=== PATIENT | female | born 1960 | race African-American/Black ===

== ENCOUNTER 2016-10-01 06:06 | Day surgery (SDC) | payer OTHER ==
[~2016-10-01] VITALS: Ht 157.5 cm; Wt 69.1 kg
[~2016-10-01 06:06] MED LIST: SODIUM CHLORIDE 0.9% 1,000 ML IV ONE
[2016-10-01] MEDS ORDERED: SODIUM CHLORIDE 0.9% 1,000 ML IV ONE (06:13)
[2016-10-01] MEDS ORDERED: FentaNYL CITRATE-PF 100 MCG/2 ML VIAL ONE (07:12)
[2016-10-01] MEDS ORDERED: MIDAZOLAM HCL 2 MG/2 ML VIAL ONE (07:12)
[2016-10-01] MEDS ORDERED: MethylPREDNISolone SOD SUCC 125 MG/2 ML VIAL IVP ONE (08:45)
[2016-10-01] MEDS ORDERED: MethylPREDNISolone SOD SUCC 125 MG/2 ML VIAL ONE (08:49)
[2016-10-01] MEDS ORDERED: ALBUTEROL SULFATE 2.5 MG/0.5 ML NEB SOLUTION NEB ONE (16:46)
[2016-10-01] MEDS ORDERED: LIDOCAINE HCL 4% 50 ML SOLUTION TP ONE (16:46)
[2016-10-01] MEDS ORDERED: LIDOCAINE HCL 2% 30 ML JELLY TP ONE (16:46)
[2016-10-01] MEDS ORDERED: BENZOCAINE 20% 50 MCG/SPRAY 57 GM TP ONE (16:46)
[2016-10-01] MEDS ORDERED: OXYGEN THERAPY IH SCH (20:00)
== END 2016-10-01 09:50 | disposition home or self-care (01) ==
LOC: SURGERY 06:06
PROVIDERS: ATTEND Internal Medicine Critical Care Medicine
DX: J38.4 Edema of larynx (principal); B37.0 Candidal stomatitis; J44.9 Chronic obstructive pulmonary disease, unspecified; M46.90 Unspecified inflammatory spondylopathy, site unspecified; F17.210 Nicotine dependence, cigarettes, uncomplicated; Z88.0 Allergy status to penicillin; Z98.890 Other specified postprocedural states; Z90.710 Acquired absence of both cervix and uterus
CPT/HCPCS: 31623; 31624; 71010; 87015 ×2; 87070; 87101; 87147; 87205; 87220; 88108; 88312; J2250; J2930; J3010; J7030